=== PATIENT | female | born 1980 | race Caucasian/White ===

== ENCOUNTER 2016-12-10 05:32 | Emergency (ER) | payer BC, MEDICAID ==
[2016-12-10] MEDS ORDERED: Sodium Chloride 0.9% 1,000 ML IV ONE (05:42)
[2016-12-10] MEDS ORDERED: Ondansetron 4 MG/2 ML SDV IV ONE (05:44)
--- NOTE | 2016-12-10 06:12 | EDM.PDOC ---
<Abbie Villar - Last Filed: 12/10/16 06:31> ED HPI GI/ABDOMINAL - General Chief Complaint: Gastrointestinal Problem Stated Complaint: POSSIBLE STROKE Time Seen by Provider: 12/10/16 05:35 Source of Information: Reports: Patient, Family History Limitations: Reports: No limitations - History of Present Illness INITIAL COMMENTS - FREE TEXT/NARRATIVE: Patient reports cant move face or hands, Vomiting for one week, cant keep anything down including usual medications. Family report vomiting and diarrhea have be going on 2-3 weeks. Grieving for mother for past month, Unknown if any possible drug use besides possible marijuana. ETOH use. No threats of harms to self. Decreasing ability to care for self and children since loss. 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: Musculoskeletal History: Reports: Fracture Neurological History: Reports: None Psychiatric History: Reports: Anxiety Endocrine/Metabolic History: Reports: None Immunologic History: Reports: None Oncologic (Cancer) History: Reports: None Dermatologic History: Reports: None - Infectious Disease History Infectious Disease History: Reports: None - Past Surgical History Female Surgical History: Reports: section, Hysterectomy Neurological Surgical History: Reports: None Social & Family History - Family History Family Medical History: Noncontributory - Tobacco Use Smoking Status *Q: Never Smoker - Caffeine Use Caffeine Use: Reports: Soda ED ROS GENERAL - Review of Systems Review Of Systems: See Below Constitutional: Reports: no symptoms HEENT: Reports: No symptoms Respiratory: Reports: No Symptoms Cardiovascular: Reports: No symptoms Endocrine: Reports: no symptoms GI/Abdominal: Reports: Diarrhea, Vomiting : Reports: no symptoms Musculoskeletal: Reports: no symptoms Skin: Reports: no symptoms Neurological: Reports: No Symptoms Psychiatric: Reports: Anxiety, Depression ED EXAM, GI/ABD - Physical Exam Exam: See Below Exam Limited By: No limitations General Appearance: anxious (hhyperventilating), moderate distress Eyes: bilateral: EOMI Ears: normal external exam Nose: normal inspection Throat/Mouth: Normal lips, Normal oropharynx (mucus membranes tacky), Other Head: atraumatic, normocephalic Neck: normal inspection Respiratory/Chest: no respiratory distress, lungs clear, normal breath sounds Cardiovascular: normal peripheral pulses, regular rate, rhythm, tachycardia GI/Abdominal: normal bowel sounds, soft, hyperactive bowel sounds Back Exam: normal inspection, full range of motion Extremities: normal inspection, normal range of motion, other (carpopedal spam ) Neurological: alert, oriented, no motor/sensory deficits, other (hyperactive reflexesfacial spasm +chCvostek) Psychiatric: anxious, flat affect Skin Exam: Warm, Dry, Intact Course - Vital Signs Last Recorded V/S: Last Vital Signs Temp 36.5 C 12/10/16 05:35 Pulse 73 12/10/16 06:31 Resp 20 12/10/16 06:31 BP 128/88 12/10/16 06:31 Pulse Ox 100 12/10/16 06:31 - Orders/Labs/Meds Orders: Active Orders 24 hr Category Date Time Status EKG 12 Lead [EKG Documentation Completion] [RC] URGENT Care 12/10/16 05:45 Active Labs: Laboratory Tests 12/10/16 12/10/16 12/10/16 Range/Units 05:54 05:54 05:54 WBC 12.8 H (5.0-10.0) 10^3/uL RBC 5.79 H (4.2-5.4) 10^6/uL Hgb 16.9 H (12.0-16.0) g/dL Hct 48.9 H (37.0-47.0) % MCV 84.5 (80-100) fL MCH 29.2 (27.0-34.0) pg MCHC 34.6 (33.0-35.0) g/dL Plt Count 490 H (150-450) 10^3/uL Neut % (Auto) 60.7 (42.2-75.2) % Lymph % (Auto) 31.6 (20.5-50.1) % [place] % (Auto) 7.3 (2-8) % Eos % (Auto) 0.2 L (1.0-3.0) % Baso % (Auto) 0.2 (0.0-1.0) % Sodium 141 (135-145) mmol/L Potassium 3.6 (3.6-5.0) mmol/L Chloride 97 L (101-111) mmol/L Carbon Dioxide 25.0 (21.0-31.0) mmol/L Anion Gap 22.6 BUN 16 (7-18) mg/dL Creatinine 1.1 (0.6-1.3) mg/dL Est Cr Clr Drug Dosing 68.09 mL/min Estimated GFR (MDRD) 56 BUN/Creatinine Ratio 14.54 Glucose 148 H (74-105) mg/dL Calcium 10.1 (8.4-10.2) mg/dl Magnesium 1.9 (1.8-2.5) mg/dL Total Bilirubin 0.9 (0.2-1.0) mg/dL AST 26 (10-42) IU/L ALT 16 (10-60) IU/L Alkaline Phosphatase 62 (42-121) IU/L Troponin I < 0.02 (0.00-0.02) ng/ml Total Protein 8.7 H (6.7-8.2) g/dl Albumin 5.3 (3.2-5.5) g/dl Globulin 3.4 Albumin/Globulin Ratio 1.56 Amylase 100 (28-100) U/L Lipase 38 (22-51) U/L TSH, Ultra Sensitive 5.09 (0.35-7.0) uIu/mL Urine Color (YELLOW) Urine Appearance (CLEAR) Urine pH (5.0-9.0) Ur Specific [place] (1.005-1.030) Urine Protein (NEGATIVE) Urine Glucose (UA) (NEGATIVE) Urine Ketones (NEGATIVE) Urine Occult Blood (NEGATIVE) Urine Nitrite (NEGATIVE) Urine Bilirubin (NEGATIVE) Urine Urobilinogen (0.2-1.0) mg/dL Ur Leukocyte Esterase (NEGATIVE) Urine RBC /HPF Urine WBC (0-5/HPF) /HPF Ur Epithelial Cells /HPF Urine Bacteria (0-FEW/HPF) /HPF Hyaline Casts /LPF Urine Mucus /LPF Urine Opiates Screen (NEGATIVE) Ur Oxycodone Screen (NEGATIVE) Urine Methadone Screen (NEGATIVE) Ur Barbiturates Screen (NEGATIVE) U Tricyclic Antidepress (NEGATIVE) Ur Phencyclidine Scrn (NEGATIVE) Ur Amphetamine Screen (NEGATIVE) U Methamphetamines Scrn (NEGATIVE) Urine MDMA Screen (NEGATIVE) U Benzodiazepines Scrn (NEGATIVE) Urine Cocaine Screen (NEGATIVE) U Marijuana (THC) Screen (NEGATIVE) Ethyl Alcohol mg/dL 12/10/16 12/10/16 12/10/16 Range/Units 05:54 06:25 06:25 WBC (5.0-10.0) 10^3/uL RBC (4.2-5.4) 10^6/uL Hgb (12.0-16.0) g/dL Hct (37.0-47.0) % MCV (80-100) fL MCH (27.0-34.0) pg MCHC (33.0-35.0) g/dL Plt Count (150-450) 10^3/uL Neut % (Auto) (42.2-75.2) % Lymph % (Auto) (20.5-50.1) % [place] % (Auto) (2-8) % Eos % (Auto) (1.0-3.0) % Baso % (Auto) (0.0-1.0) % Sodium (135-145) mmol/L Potassium (3.6-5.0) mmol/L Chloride (101-111) mmol/L Carbon Dioxide (21.0-31.0) mmol/L Anion Gap BUN (7-18) mg/dL Creatinine (0.6-1.3) mg/dL Est Cr Clr Drug Dosing mL/min Estimated GFR (MDRD) BUN/Creatinine Ratio Glucose (74-105) mg/dL Calcium (8.4-10.2) mg/dl Magnesium (1.8-2.5) mg/dL Total Bilirubin (0.2-1.0) mg/dL AST (10-42) IU/L ALT (10-60) IU/L Alkaline Phosphatase (42-121) IU/L Troponin I (0.00-0.02) ng/ml Total Protein (6.7-8.2) g/dl Albumin (3.2-5.5) g/dl Globulin Albumin/Globulin Ratio Amylase (28-100) U/L Lipase (22-51) U/L TSH, Ultra Sensitive (0.35-7.0) uIu/mL Urine Color Yellow (YELLOW) Urine Appearance Cloudy (CLEAR) Urine pH >= 9.0 (5.0-9.0) Ur Specific [place] 1.015 (1.005-1.030) Urine Protein 100 H (NEGATIVE) Urine Glucose (UA) Negative (NEGATIVE) Urine Ketones 80 H (NEGATIVE) Urine Occult Blood Negative (NEGATIVE) Urine Nitrite Negative (NEGATIVE) Urine Bilirubin Small H (NEGATIVE) Urine Urobilinogen 2.0 H (0.2-1.0) mg/dL Ur Leukocyte Esterase Negative (NEGATIVE) Urine RBC 0-5 /HPF Urine WBC 0-5 (0-5/HPF) /HPF Ur Epithelial Cells Moderate H /HPF Urine Bacteria Moderate H (0-FEW/HPF) /HPF Hyaline Casts Few H /LPF Urine Mucus Moderate H /LPF Urine Opiates Screen Negative (NEGATIVE) Ur Oxycodone Screen Negative (NEGATIVE) Urine Methadone Screen Negative (NEGATIVE) Ur Barbiturates Screen Negative (NEGATIVE) U Tricyclic Antidepress Negative (NEGATIVE) Ur Phencyclidine Scrn Negative (NEGATIVE) Ur Amphetamine Screen Negative (NEGATIVE) U Methamphetamines Scrn Negative (NEGATIVE) Urine MDMA Screen Negative (NEGATIVE) U Benzodiazepines Scrn Positive H (NEGATIVE) Urine Cocaine Screen Negative (NEGATIVE) U Marijuana (THC) Screen Positive H (NEGATIVE) Ethyl Alcohol < 5 mg/dL Meds: Medications Discontinued Medications Generic Name Dose Route Start Last Admin Trade Name Freq PRN Reason Stop Dose Admin Sodium Chloride 1,000 mls @ 999 mls/hr 12/10/16 05:42 12/10/16 05:56 Normal Saline IV 12/10/16 06:42 999 mls/hr .BOLUS ONE Administration Ceftriaxone Sodium 1 gm/ 100 mls @ 200 mls/hr 12/10/16 06:40 12/10/16 06:50 Sodium Chloride IV 12/10/16 07:09 200 mls/hr ONETIME ONE Administration Lorazepam 1 mg 12/10/16 06:39 12/10/16 06:45 Ativan IVPUSH 12/10/16 06:40 1 mg ONETIME ONE Administration Metoclopramide HCl 10 mg 12/10/16 06:31 12/10/16 06:36 Reglan IVPUSH 12/10/16 06:32 10 mg ONETIME ONE Administration Ondansetron HCl 4 mg 12/10/16 05:44 12/10/16 05:56 Zofran IV 12/10/16 05:45 4 mg ONETIME ONE Administration Penicillin G Procaine/Benzathine 1.2 millunits 12/10/16 06:54 12/10/16 07:09 Bicillin C-R 600/600 IM 12/10/16 06:55 1.2 millunits ONETIME ONE Administration Promethazine HCl 25 mg 12/10/16 07:24 12/10/16 07:29 Phenergan IM 12/10/16 07:25 25 mg ONETIME ONE Administration Departure - Departure Disposition: Home, Self-Care 01 Clinical Impression: Strep throat, Gastroenteritis Instructions: Strep Throat, [id number], Gastritis, Adult, [id number] Forms: ED Department Discharge Care Plan Goals: The patient and family were advised of the examination, treatments and lab results during the visit. The patient was given Zofran (for nausea), Reglan ( for nausea), Ativan (for anxiety), IV fluids (for hydration), Rocephin ( antibiotic), Bicillin (antibiotic) and Phenergan (for nausea). The patient was advised to stick to a BRAT diet (bananas, rice, applesauce and toast) with small frequent sips of water. The patient should avoid soda (Mountain Dew) and sugary drinks over the next 48 hours. The patient should follow-up with her primary care facility for continued evaluation and further management. If the patient has any additional symptoms or concerns, the patient should visit her primary care facility or return to the emergency department. <Ray Milligan - Last Filed: 12/10/16 08:04> Course - Re-Assessments/Exams Free Text/Narrative Re-Assessment/Exam: 12/10/16 08:00 Patient care was taken over at shift change. The patient was given an IM dose of Phenergan for continued nausea and vomiting. Departure - Departure Time of Disposition: 08:00 Condition: fair
[2016-12-10 06:23] LABS: CHLORIDE,CL 97 mmol/L (101-111); SODIUM,NA 141 mmol/L (135-145)
[2016-12-10] MEDS ORDERED: Metoclopramide 10 MG/2 ML SDV IVPUSH ONE (06:31)
[2016-12-10 06:32] VITALS: BP 128/88
[2016-12-10] MEDS ORDERED: LORazepam 2 MG/ML Syringe IVPUSH ONE (06:39)
[2016-12-10] MEDS ORDERED: cefTRIAXone 1 GM in Sodium Chloride 0.9% 100 ML IV ONE (06:40)
[2016-12-10] MEDS ORDERED: Penicillin G Benzathine/Procaine 600-600 1.2 Millunits/2 ML Syringe IM ONE (06:54)
[2016-12-10] MEDS ORDERED: Promethazine 25 MG/ML SDV IM ONE (07:24)
--- NOTE | 2016-12-10 20:40 | EKG ---
12/10/2016 - ALICIA ROBERTO - TIME OF EK hours. EKG shows normal sinus rhythm at 65 beats per minute. There is a prolonged QTc interval at 495 milliseconds. There is a short IN interval 108 milliseconds. There is early R-wave progression. There appeared to be scattered U waves. [facility] /[id number]
== END 2016-12-10 08:20 | disposition home or self-care (01) ==
LOC: DL.ED 05:32
DX: K52.9 Noninfective gastroenteritis and colitis, unspecified (principal); J02.0 Streptococcal pharyngitis; F41.9 Anxiety disorder, unspecified; Z90.710 Acquired absence of both cervix and uterus
CPT/HCPCS: 36415; 70450; 80053; 80305; 81001; 82150; 83690; 83735; 84443; 84484; 85025; 87430; 87804; 93005; 96361; 96365; 96375; 99284; G0480; J0558; J0696; J2060; J2405; J2550; J2765; J7030; J7050

== ENCOUNTER 2024-12-01 12:12 | Emergency (ER) | payer SELFPAY ==
[2024-12-01] MEDS ORDERED: Sodium Chloride 0.9% 10 ML Syringe FLUSH PRN (12:16)
[2024-12-01] MEDS: Ondansetron 4 MG/2 ML SDV IVPUSH ONE (12:27)
[2024-12-01] MEDS: diphenhydrAMINE 50 MG/ML SDV IVPUSH ONE (12:30)
[2024-12-01] MEDS: Sodium Chloride 0.9% 1,000 ML IV ONE (12:32)
[2024-12-01 12:48] LABS: BASOPHILS PERCENT AUTO 0.1 % (0.0-1.0); EOSINOPHILS PERCENT AUTO 0.1 % (1.0-3.0); HEMATOCRIT 42.8 % (37.0-47.0); HEMOGLOBIN 14.4 g/dL (12.0-16.0); LYMPHOCYTES PERCENT AUTO 28.7 % (20.5-50.1); MEAN CORPUSCULAR HGB CONC 33.6 g/dL (33.0-35.0); MEAN CORPUSCULAR VOLUME 77.4 fL (80-100); NEUTROPHILS PERCENT AUTO 64.1 % (42.2-75.2); PLATELET COUNT,PLT 578 10^3/uL (150-450); RED BLOOD CELL COUNT 5.53 10^6/uL (4.2-5.4)
[2024-12-01] MEDS ORDERED: Sodium Chloride 0.9% 1,000 ML IV ONE (12:57)
[2024-12-01 13:07] LABS: A/G RATIO 1.1; ALANINE AMINOTRANSFERASE,ALT 18 U/L (14-59); ALBUMIN 4.2 g/dL (3.4-5.0); ALKALINE PHOSPHATASE 76 U/L (46-116); ANION GAP 23.5 mEq/L (7-13); ASPARTATE AMNIOTRANSFERASE,AST 16 U/L (15-37); BILIRUBIN TOTAL 0.6 mg/dL (0.2-1.0); BLOOD UREA NITROGEN,BUN 9 mg/dL (7-18); BUN/CREATININE RATIO 7.8 (No establ ref range); CARBON DIOXIDE,CO2 20 mmol/L (21-32); CHLORIDE,CL 100 mmol/L (98-107); CREATININE 1.15 mg/dL (0.55-1.02); EST CRCL DRUG DOSING (CG) 60.07 mL/min; ESTIMATED GFR 60 mL/min (>=60); GLUCOSE RANDOM 126 mg/dL (70-99); MAGNESIUM 1.6 mg/dL (1.8-2.4); POTASSIUM,K 3.5 mmol/L (3.5-5.1); PROTEIN TOTAL,TP 8.1 g/dL (6.4-8.2); SODIUM,NA 140 mmol/L (136-145)
[2024-12-01 13:08] LABS: C-REACTIVE PROTEIN < 0.50 ng/dL (<=0.50)
[2024-12-01 13:11] LABS: LACTIC ACID 4.1 mmol/L (0.4-2.0)
[2024-12-01] MEDS: Ketorolac 30 MG/ML SDV IVPUSH ONE (13:13)
[2024-12-01] MEDS: LORazepam 2 MG/ML SDV IVPUSH ONE (13:32)
[2024-12-01 13:45] LABS: APPEARANCE,URINE CLEAR (CLEAR); BILIRUBIN,URINE NEGATIVE (NEGATIVE); GLUCOSE,URINE NEGATIVE (NEGATIVE); KETONES,URINE 80 (NEGATIVE); LEUKOCYTE ESTERASE,URINE NEGATIVE (NEGATIVE); NITRITE,URINE NEGATIVE (NEGATIVE); OCCULT BLOOD,URINE NEGATIVE (NEGATIVE); PROTEIN,URINE NEGATIVE (NEGATIVE); UROBILINOGEN,URINE 0.2 mg/dL (0.2-1.0)
[2024-12-01 13:46] LABS: COLOR,URINE LIGHT YELLOW (YELLOW)
[2024-12-01 13:48] LABS: AMPHETAMINES,URINE NEGATIVE (NEGATIVE); BARBITURATES,URINE NEGATIVE (NEGATIVE); BENZODIAZEPINE,URINE NEGATIVE (NEGATIVE); MDMA (ECSTASY), URINE NEGATIVE (NEGATIVE); METHADONE,URINE NEGATIVE (NEGATIVE); METHAMPHETAMINES,URINE NEGATIVE (NEGATIVE); OPIATES,URINE NEGATIVE (NEGATIVE); OXYCODONE,URINE NEGATIVE (NEGATIVE); PHENCYCLIDINE,URINE NEGATIVE (NEGATIVE); TCA,URINE NEGATIVE (NEGATIVE)
[2024-12-01 13:57] VITALS: BP 123/100; PULSE 72
== END 2024-12-01 13:52 | disposition home or self-care (01) ==
LOC: DL.ED 12:12
DX: B34.9 Viral infection, unspecified (principal); F41.0 Panic disorder [episodic paroxysmal anxiety]; Z88.1 Allergy status to other antibiotic agents; Z79.899 Other long term (current) drug therapy
CPT/HCPCS: 36415; 80053; 80305; 81003; 82947; 83605; 83735; 85025; 86140; 87428; 96361; 96374; 96375; 99283; 99284; J1200; J1885; J2060; J2405; J7030